=== PATIENT | female | born 1950 | race Two or more races ===

== ENCOUNTER 2019-10-19 14:37 | Emergency (ER) | payer OTHER, MEDICAID ==
[~2019-10-19] VITALS: Ht 160 cm; Wt 59.0 kg
[~2019-10-19 14:37] MED LIST: ASPI-1153 PO; ATEN100T PO; BENA40TA8 PO; CYTOMEL; DEXILANT; DILT120C21 PO; EZET1TAB35 PO; FLUO-119 PO; FURO-150 PO; HYDR-507 PO; IBUP-1970 PO; LEVO112T5 PO; LORA-259 PO; METF-379 PO; NITR50CA PO; POTA10TA15 PO; SERT50TA12 PO; TRAZ-250 PO
[2019-10-19 15:00] VITALS: BP_SYST 110
--- NOTE | 2019-10-19 15:00 | NUR ---
Patient to ER bed 2 to gown for evaluation. Side rails up.
[2019-10-19] MEDS ORDERED: NACL 0.9% 1,000 ML IV ONE ×2 (15:05→15:30)
--- NOTE | 2019-10-19 15:05 | NUR ---
ER at bedside examining patient.
--- NOTE | 2019-10-19 15:10 | NUR ---
Patient BIB ACLS C/O chest pain. Patient A&Ox3, skin pink and warm, pain 8/10, denies N/V/D. Patient states she is a resident of [facility], patient states she was upset with care & [employer] and began having Chest pain. ACLS was called
[2019-10-19] MEDS ORDERED: NITROGLYCERIN 0.4 MG TAB.SUBL SL ONE (15:15)
[2019-10-19] MEDS ORDERED: ASPIRIN 81 MG TAB.CHEW PO ONE (15:15)
--- NOTE | 2019-10-19 15:35 | NUR ---
EKG performed at BS by MOLLY TORRES. Physician given copy of EKG for review.
[2019-10-19 16:00] LABS: BASOPHILS % (AUTO) 0.7 % (0.0-2.0); EOSINOPHILS # (AUTO) 0.2 K/uL (0.0-0.4); EOSINOPHILS % (AUTO) 3.2 % (0.0-4.0); HEMATOCRIT 37.2 % (36-48); HEMOGLOBIN 12.2 g/dL (12.0-16.0); LYMPHOCYTES # (AUTO) 1.7 K/uL (1.0-5.5); LYMPHOCYTES % (AUTO) 23.4 % (20.5-51.5); MEAN CORPUSCULAR HEMOGLOBIN 27 pg (27-31); MEAN CORPUSCULAR HGB CONC 33 % (32-36); MEAN CORPUSCULAR VOLUME 84 fL (79.0-98.0); MONOCYTES # (AUTO) 0.6 K/uL (0.0-1.0); MONOCYTES % (AUTO) 7.5 % (1.7-9.3); NEUTROPHILS # (AUTO) 4.9 K/uL (1.8-7.7); NEUTROPHILS % (AUTO) 65.2 % (40.0-70.0); PLATELET COUNT (AUTO) 377 K/uL (130-430); RED BLOOD CELL COUNT(AUTO) 4.44 MIL/uL (4.2-6.2); RED CELL DISTRIBUTION WIDTH 15.5 % (9.0-15.0); WHITE BLOOD COUNT (AUTO) 7.4 K/uL (4.8-10.8)
[2019-10-19 16:19] LABS: BILIRUBIN,URINE NEGATIVE (NEGATIVE); BLOOD, URINE NEGATIVE (NEGATIVE); CLARITY/URINE CLEAR (CLEAR); COLOR,URINE YELLOW (YELLOW); GLUCOSE,URINE NEGATIVE (NEGATIVE); KETONES,URINE NEGATIVE (NEGATIVE); LEUKOCYTE ESTERASE ,URINE NEGATIVE (NEGATIVE); NITRITE, URINE NEGATIVE (NEGATIVE); PH,URINE 6.5 (5.0-8.0); PROTEIN URINE 1+ (NEGATIVE); UROBILINOGEN,URINE 0.2 (0.2-1.0)
[2019-10-19 16:22] LABS: CALCIUM 9.1 mg/dL (8.4-11.0); CREATININE 0.95 mg/dL (0.55-1.30); POTASSIUM 3.5 mmol/L (3.5-5.1)
[2019-10-19 16:28] LABS: ALBUMIN 3.7 g/dL (3.4-4.8); TOTAL BILIRUBIN 0.2 mg/dL (0.0-1.0)
[2019-10-19 17:35] VITALS: BP_SYST 106
--- NOTE | 2019-10-19 17:35 | NUR ---
Patient given written and verbal discharge instructions and verbalizes understanding. ER MD discussed with patient the results and treatment provided. Patient in stable condition. ID arm band removed. IV catheter removed intact and dressing applied, no active bleeding. NO Rx given. Patient educated on pain management and to follow up with PMD. Pain Scale 3/10 tolerable for patient. Opportunity for questions provided and answered. Medication side effect fact sheet provided.
--- NOTE | 2019-10-19 18:01 | NUR ---
Report given to Daja SALGADO at [facility]. Care at bedside for transport.
[2019-10-19] MEDS ORDERED: ACETAMINOPHEN 325 MG TABLET PO ONE (18:30)
[2019-10-20] MEDS ORDERED: NITROGLYCERIN 0.4 MG TAB.SUBL SL ONE (08:44)
== END 2019-10-19 17:35 | disposition home or self-care (01) ==
LOC: SED 14:37
DX: F41.9 Anxiety disorder, unspecified (principal); R07.89 Other chest pain; E11.9 Type 2 diabetes mellitus without complications; I10 Essential (primary) hypertension; I25.10 Atherosclerotic heart disease of native coronary artery without angina pectoris; Z79.84 Long term (current) use of oral hypoglycemic drugs; Z79.899 Other long term (current) drug therapy
CPT/HCPCS: 36415; 71045; 80053; 81003; 82150; 82550; 83605; 83690; 83880; 84484; 85025; 85610; 85730; 87040; 93005; 99284; J7030

== ENCOUNTER 2020-07-26 10:50 | Inpatient (IN) | payer OTHER, MEDICAID, SELFPAY ==
[~2020-07-26] VITALS: Ht 165.1 cm; Wt 94.3 kg
[~2020-07-26 10:50] MED LIST changes: -ASPI-1153 PO; +ASPI-1393 PO; -FLUO-119 PO; +FLUO20CA41 PO
[2020-07-26 10:56] VITALS: BP_SYST 138
--- NOTE | 2020-07-26 11:00 | NUR ---
Patient to ER bed 8 to gown for evaluation. Side rails up. Report given to MILA SALGADO.
--- NOTE | 2020-07-26 11:01 | NUR ---
Patient presented to ER C/O abdominal pain. Patient BIB BLS to ER, A&Ox4 ambulatory, afebrile, skin pink & warm, nausea, diarrhea, denies vomiting, abdominal distention, pain 10/10. Patient states she has adominal pain with diarrhea x8 today and blood in urine.
--- NOTE | 2020-07-26 12:40 | NUR ---
ER Dr. Cleveland at bedside examining patient.
[2020-07-26] MEDS ORDERED: MORPHINE 4 MG/ML INJ. SYRINGE IVP ONE (13:00)
[2020-07-26] MEDS ORDERED: ONDANSETRON HCL 4 MG/2 ML VIAL IVP ONE (13:00)
--- NOTE | 2020-07-26 13:00 | NUR ---
# 20 gauge angiocath placed to lac. Use of asceptic technique. Opsite placed over site. Blood return noted. Blood for lab drawn from site. Flushed with 10 cc of normal saline. No evidence of infiltration noted. Patient tolerated well.
[2020-07-26 13:18] LABS: BASOPHILS # (AUTO) 0.1 K/uL (0.0-0.2); BASOPHILS % (AUTO) 0.5 % (0.0-2.0); EOSINOPHILS # (AUTO) 0.2 K/uL (0.0-0.4); EOSINOPHILS % (AUTO) 1.4 % (0.0-4.0); HEMATOCRIT 37.6 % (36-48); HEMOGLOBIN 12.2 g/dL (12.0-16.0); LYMPHOCYTES # (AUTO) 2.2 K/uL (1.0-5.5); LYMPHOCYTES % (AUTO) 16.9 % (20.5-51.5); MEAN CORPUSCULAR HEMOGLOBIN 26 pg (27-31); MEAN CORPUSCULAR HGB CONC 32 % (32-36); MEAN CORPUSCULAR VOLUME 80 fL (79.0-98.0); MONOCYTES % (AUTO) 7.3 % (1.7-9.3); NEUTROPHILS # (AUTO) 9.8 K/uL (1.8-7.7); NEUTROPHILS % (AUTO) 73.9 % (40.0-70.0); PLATELET COUNT (AUTO) 364 K/uL (130-430); RED BLOOD CELL COUNT(AUTO) 4.71 MIL/uL (4.2-6.2); RED CELL DISTRIBUTION WIDTH 15.2 % (9.0-15.0); WHITE BLOOD COUNT (AUTO) 13.3 K/uL (4.8-10.8)
[2020-07-26 13:24] LABS: CALCIUM 9.6 mg/dL (8.4-11.0); CREATININE 0.85 mg/dL (0.55-1.30); POTASSIUM 3.6 mmol/L (3.5-5.1)
[2020-07-26 13:28] LABS: PROTHROMBIN TIME 10.7 SECS (9.5-12.5)
[2020-07-26 13:30] LABS: TOTAL BILIRUBIN 0.3 mg/dL (0.0-1.0)
[2020-07-26 13:50] LABS: BILIRUBIN,URINE NEGATIVE (NEGATIVE); BLOOD, URINE 3+ (NEGATIVE); GLUCOSE,URINE NEGATIVE (NEGATIVE); KETONES,URINE NEGATIVE (NEGATIVE); LEUKOCYTE ESTERASE ,URINE 3+ (NEGATIVE); NITRITE, URINE NEGATIVE (NEGATIVE); PH,URINE 7.5 (5.0-8.0); PROTEIN URINE 1+ (NEGATIVE); UROBILINOGEN,URINE 0.2 (0.2-1.0)
[2020-07-26 14:06] LABS: CLARITY/URINE CLOUDY (CLEAR); COLOR,URINE ORANGE (YELLOW)
[2020-07-26 14:07] LABS: BACTERIA,URINE FEW /HPF (None Seen); RBC,URINE >100 /HPF (0-3); WBC,URINE 50-80 /HPF (0-3)
[2020-07-26 14:08] LABS: MUCUS,URINE 1+ /LPF (None Seen)
[2020-07-26] MEDS ORDERED: NS 1000 ML IV.SOLN IV ONE (14:15)
[2020-07-26] MEDS ORDERED: cefTRIAXone 1 GM IVPB PREMIX 50 ML IV ONE (14:15)
--- NOTE | 2020-07-26 14:59 | NUR ---
Lab notified of to draw second lactic acid.
--- NOTE | 2020-07-26 15:18 | NUR ---
Daughter of PT given telephone update. Patient vebally consented giving information to Elizabet king.
[2020-07-26] MEDS ORDERED: NACL 0.9% 1,000 ML IV SCH (16:30)
--- NOTE | 2020-07-26 16:38 | NUR ---
Patient will be admitted to care of DR GIL. Admitted to MS unit. Will go to room 117A . Belongings list completed. Complete and up to date summary report printed. SBAR report to be given at bedside with opportunity for questions.
[2020-07-26] MEDS ORDERED: KETO60CR2 TP (16:40)
[2020-07-26] MEDS ORDERED: MAGN400T10 PO (16:40)
[2020-07-26] MEDS ORDERED: AMLO5TAB4 PO (16:40)
[2020-07-26] MEDS ORDERED: MONT10TA22 PO (16:40)
[2020-07-26] MEDS ORDERED: POLY15DR31 EACH EYE (16:40)
[2020-07-26] MEDS ORDERED: LOSA50TA3 PO (16:40)
[2020-07-26] MEDS ORDERED: LOP600 PO (16:40)
[2020-07-26] MEDS ORDERED: ROSU10TA2 PO (16:40)
[2020-07-26] MEDS ORDERED: ZOLP5TAB2 PO (16:40)
--- NOTE | 2020-07-26 17:00 | NUR ---
ADMISSION NOTE Received patient from ER via yancy, received report from Fabiana SALGADO. Patient admitted with diagnosis of UTI . Patient oriented to hospital routine, call light, toileting and safety-patient verbalized understanding.
[2020-07-26] MEDS ORDERED: LORazepam 2 MG/ML VIAL IVP PRN (17:15)
[2020-07-26] MEDS ORDERED: MAGNESIUM SULFATE 50 ML IV PRN (17:15)
[2020-07-26] MEDS ORDERED: DEXTROSE 50% JECT 50 ML DISP.SYRIN IVP PRN (17:15)
[2020-07-26] MEDS ORDERED: POTASSIUM CHLORIDE 20 MEQ TAB.PRT.SR PO PRN (17:15)
[2020-07-26] MEDS ORDERED: ACETAMINOPHEN 325 MG TABLET PO PRN (17:15)
[2020-07-26] MEDS ORDERED: NALOXONE HCL 0.4 MG/ML AMP (NARCAN) IVP PRN ×2 (17:15)
[2020-07-26] MEDS ORDERED: MUPIROCIN 2% TOPICAL OINTMENT 22 GM NS PRN (17:15)
--- NOTE | 2020-07-26 17:30 | NUR ---
nurse note obtained vs, assessed patient, abdomen firm, distended, tender. bed in low and locked position, call light within reach, bed alarm on
[2020-07-26] MEDS: NACL 0.9% 1,000 ML IV SCH (17:59)
--- NOTE | 2020-07-26 18:00 | NUR ---
nurse note hung IVF's iv flushed freely, no signs of infiltration, patient denies any pain or discomfort
--- NOTE | 2020-07-26 18:44 | NUR ---
medication clarification spoke with dr Chase, Norvasc should be every morning not 4 times a day
[2020-07-26 18:50] VITALS: BP_SYST 142
--- NOTE | 2020-07-26 19:10 | NUR ---
CLOSING NOTE PROVIDED BEDSIDE SBAR TO NIGHT RN, PATIENT IN BED, RESPIRATIONS EVEN, NON LABORED, BED IN LOW AND LOCKED POSITION, CALL LIGHT WITHIN REACH, BED ALARM ON, ENDORSED TRANSFER TO NIGHT RN Addendum: 07/26/20 at 1926 by Mercedes Quevedo RN DISREGARD TRANSFER ENDORSEMENT, ENTERED ON WRONG PATIENT
[2020-07-26] MEDS: cefTRIAXone 1 GM in D5W 50 ML IV SCH (19:26)
--- NOTE | 2020-07-26 19:39 | NUR ---
Initial note: Received report from dayshift RN. Patient is awake in bed watching TV. No acute distress. Even and unlabored breathing, tolerating room air. IV site patent and benign, receiving IV fluids per MD order. Call light is with patient. Safety, fall precautions in place. Will continue with plan of care.
[2020-07-26 20:00] VITALS: BP_SYST 135
[2020-07-26] MEDS: ATENOLOL 50 MG TABLET (TENORMIN) PO SCH (20:58)
[2020-07-26] MEDS: GEMFIBROZIL 600 MG TABLET (LOPID) PO SCH (20:58)
[2020-07-26] MEDS: DILTIAZEM HCL 120 MG CAP.SR.24H PO SCH (20:58)
[2020-07-26] MEDS: FLUoxetine HCL 20 MG CAPSULE (PROzac) PO SCH (20:58)
[2020-07-26] MEDS: MONTELUKAST 10 MG TABLET PO SCH (20:58)
[2020-07-26] MEDS ORDERED: HEPARIN SODIUM,PORCINE 5,000 UNITS/ML VIAL SUBCUT SCH (21:00)
[2020-07-26] MEDS ORDERED: amLODIPine BESYLATE 5 MG TABLET PO SCH (21:00)
[2020-07-26] MEDS: INSULIN LISPRO SLIDING SCALE 100 UNITS/ML VIAL (humaLOG) SUBCUT PRN (21:02)
--- NOTE | 2020-07-26 22:24 | NUR ---
Rounds: Patient is awake, does not show any acute distress. Respirations are even, unlabored on room air. IV fluids infusing per MD order, no infiltration noted. Patient ambulated to bathroom and back to bed with standby RN assist. Patient reported voiding clear, yellow urine. Call light is with patient. Will continue to monitor.
[2020-07-26] MEDS: LOSARTAN POTASSIUM 50 MG TABLET (COZAAR) PO SCH (22:35)
[2020-07-26] MEDS: traZODone HCL 50 MG TABLET (DESYREL) PO SCH (22:35)
[2020-07-26] MEDS: ZOLPIDEM TARTRATE 5 MG TABLET PO PRN (22:35)
--- NOTE | 2020-07-27 00:17 | NUR ---
Rounds: Patient is in bed sleeping. No s / s of acute distress. Tolerating room air. Even and unlabored breathing. IV site receiving IV fluids shows no infiltration. Patient ambulated to bathroom and back to bed with standby RN assist. Patient reported voiding clear, yellow urine. Call light is with patient. Will continue monitoring.
[2020-07-27 00:55] VITALS: BP_SYST 100
--- NOTE | 2020-07-27 02:43 | NUR ---
Family update: Update provided to patient's daughter Sanjana Lee (person to notify per face sheet). She requests to be notified regarding patient discharge.
--- NOTE | 2020-07-27 03:45 | NUR ---
Rounds: Patient is asleep. No acute distress. Respirations are even and unlabored on room air. IV fluids infusing well, no infiltration. Call light with patient. Will continue to monitor.
[2020-07-27] MEDS: NACL 0.9% 1,000 ML IV SCH ×3 (05:11→23:07)
--- NOTE | 2020-07-27 06:07 | NUR ---
Closing note: Patient is resting comfortably in bed. No acute distress. Even, unlabored breathing. Tolerating room air. IV fluids infusing well. IV site benign and intact. All needs met. Safety, fall precautions observed. Will endorse care to dayshift RN.
[2020-07-27 06:28] LABS: BASOPHILS % (AUTO) 0.4 % (0.0-2.0); EOSINOPHILS # (AUTO) 0.3 K/uL (0.0-0.4); HEMATOCRIT 32.7 % (36-48); HEMOGLOBIN 10.5 g/dL (12.0-16.0); LYMPHOCYTES # (AUTO) 1.7 K/uL (1.0-5.5); LYMPHOCYTES % (AUTO) 25.7 % (20.5-51.5); MEAN CORPUSCULAR HEMOGLOBIN 26 pg (27-31); MEAN CORPUSCULAR HGB CONC 32 % (32-36); MEAN CORPUSCULAR VOLUME 81 fL (79.0-98.0); MONOCYTES # (AUTO) 0.5 K/uL (0.0-1.0); MONOCYTES % (AUTO) 7.7 % (1.7-9.3); NEUTROPHILS % (AUTO) 62.2 % (40.0-70.0); PLATELET COUNT (AUTO) 292 K/uL (130-430); RED BLOOD CELL COUNT(AUTO) 4.01 MIL/uL (4.2-6.2); RED CELL DISTRIBUTION WIDTH 15.4 % (9.0-15.0); WHITE BLOOD COUNT (AUTO) 6.4 K/uL (4.8-10.8)
[2020-07-27] MEDS: LEVOTHYROXINE SODIUM 0.112 MG TABLET PO SCH (06:37)
[2020-07-27] MEDS: INSULIN LISPRO SLIDING SCALE 100 UNITS/ML VIAL (humaLOG) SUBCUT PRN ×3 (06:43→21:53)
[2020-07-27 07:20] LABS: CALCIUM 8.2 mg/dL (8.4-11.0); CREATININE 0.78 mg/dL (0.55-1.30); POTASSIUM 3.9 mmol/L (3.5-5.1)
[2020-07-27] MEDS: PEG 400/HYPROMELLOSE/GLYCERIN 15 ML DROPS OP SCH ×4 (08:15→21:39)
[2020-07-27] MEDS ORDERED: PEG 400/HYPROMELLOSE/GLYCERIN 15 ML DROPS OP SCH (08:15)
[2020-07-27] MEDS ORDERED: DIATR MEGLU/DIATRIZ SOD 30 ML SOLUTION PO ONE (08:47)
--- NOTE | 2020-07-27 08:47 | NUR ---
CONSULTATION PAGED/CALLED Reason for Consultation: SEV ANXIETY Person Who was Notified: EMERALD Consulting Physician: CLARK Ordering Physician: JEFFERY
--- NOTE | 2020-07-27 08:52 | NUR ---
Nutrition Update Ivan scale 16 noted. Pt admitted for UTI Diet: CCHO, Cardiac Diet BMI: 34.6 kg/m2 RD to follow per nutrition care standards
[2020-07-27] MEDS: DILTIAZEM HCL 120 MG CAP.SR.24H PO SCH ×2 (09:00→21:00)
[2020-07-27] MEDS: amLODIPine BESYLATE 5 MG TABLET PO SCH (09:00)
[2020-07-27] MEDS: SERTRALINE HCL 50 MG TABLET PO SCH (09:00)
[2020-07-27] MEDS: ASPIRIN 81 MG TABLET(ECOTRIN) PO SCH ×2 (09:00→09:14)
[2020-07-27] MEDS: FUROSEMIDE 20 MG TABLET PO SCH (09:00)
[2020-07-27] MEDS: FLUoxetine HCL 20 MG CAPSULE (PROzac) PO SCH ×2 (09:00→21:39)
[2020-07-27] MEDS: metFORMIN HCL 500 MG TABLET PO SCH (09:00)
[2020-07-27] MEDS: LOSARTAN POTASSIUM 50 MG TABLET (COZAAR) PO SCH ×2 (09:00→21:00)
[2020-07-27] MEDS: ATORVASTATIN 20 MG TABLET PO SCH (09:00)
[2020-07-27] MEDS ORDERED: ROSUVASTATIN CALCIUM 5 MG/TAB (CRESTOR) PO SCH (09:00)
[2020-07-27] MEDS: GEMFIBROZIL 600 MG TABLET (LOPID) PO SCH ×2 (09:00→21:57)
[2020-07-27] MEDS: ATENOLOL 50 MG TABLET (TENORMIN) PO SCH ×2 (09:00→21:00)
--- NOTE | 2020-07-27 09:07 | NUR ---
CONSULTATION PAGED/CALLED Reason for Consultation: HEMATURIA Person Who was Notified: EMERALD Consulting Physician: BRO CLEMONS Ordering Physician: JEFFERY
[2020-07-27] MEDS: MORPHINE 2 MG/ML INJ. SYRINGE IVP PRN (10:37)
--- NOTE | 2020-07-27 10:37 | NUR ---
NURSE NOTE PATIENT TAKEN TO CT SCAN, VIA WHEEL CHAIR
--- NOTE | 2020-07-27 11:30 | NUR ---
NURSE NOTE PATIENT RETURNED FROM CT SCAN, COMPLAINING OF NAUSEA, WILL PROVIDE MEDICATION
[2020-07-27] MEDS: ONDANSETRON HCL 4 MG/2 ML VIAL IVP PRN (11:49)
[2020-07-27 12:00] VITALS: BP_SYST 99
--- NOTE | 2020-07-27 13:30 | NUR ---
nurse note patient in bed, respirations even, non labored, bed in low and locked position, call light within reach,
--- NOTE | 2020-07-27 14:51 | NUR ---
Dietitian Recommendations *Recommend continue CCHO, Cardiac Diet *Recommend add Glucerna BID to provide additional 440 kcal, 20 g protein to promote PO intake. Please see Nutrition Assessment for details. NIKKO,RD
[2020-07-27 16:00] VITALS: BP_SYST 108
--- NOTE | 2020-07-27 16:37 | NUR ---
nurse note administered medications bed in low and locked position, call light within reach
--- NOTE | 2020-07-27 16:39 | NUR ---
nurse note patient complaining that it is too cold, will attempt to move patient to another room, very anxious, coughing, paged dr. Chase for breathing treatment order and cough mediation
[2020-07-27 16:56] VITALS: BP_SYST 99
[2020-07-27] MEDS: IPRATROPIUM/ALBUTEROL SULFATE 3 ML AMPUL.NEB (DUONEB) INH PRN (17:12)
[2020-07-27] MEDS: cefTRIAXone 1 GM in D5W 50 ML IV SCH (18:25)
--- NOTE | 2020-07-27 18:45 | NUR ---
nurse note patient in bed, respirations even, non labored bed in locked position call light within reach, bed alarm on
--- NOTE | 2020-07-27 19:20 | NUR ---
Closing Note Provided SBAR to night RN, patient in bed, respirations even, non labored, bed in low and locked position call light within reach, endorsed care to night RN
--- NOTE | 2020-07-27 19:30 | NUR ---
OPENING NOTES: Received report from dayshift nurse. Patient is A & O x4 ambulating in her room. She appears to be in stable condition. IV noted on LAC with dry and intact dressing. She has steady gait and is not having any complaints at this time. Ensured all safety precautions. Room is clean and free of clutter. Bed is locked and in the lowest position, call light within reach.
[2020-07-27 20:00] VITALS: BP_SYST 103
--- NOTE | 2020-07-27 21:30 | NUR ---
MEDICATION ADMINISTRATION: Patient is laying in bed with no s/s of distress or discomfort. Her BP is 118/78, BP meds were held at this time and patient was informed. All other medications were given as ordered, pt tolerated well. I educated patient about Lopid and it's benefits, she verbalized understanding. Will continue to monitor.
[2020-07-27] MEDS: traZODone HCL 50 MG TABLET (DESYREL) PO SCH (21:39)
[2020-07-27] MEDS: MONTELUKAST 10 MG TABLET PO SCH (21:40)
--- NOTE | 2020-07-27 23:15 | NUR ---
SLEEPING AID: Patient states she is unable to sleep and is requesting Ambien. I gave medication as ordered. I educated patient about the potential side effects of Ambien such as drowsiness and advised her to use caution when getting up and use call light for assistance to the bathroom if she feels dizzy. She verbalized understanding.
[2020-07-27] MEDS: ZOLPIDEM TARTRATE 5 MG TABLET PO PRN (23:16)
[2020-07-28] VITALS: BP_SYST 118
--- NOTE | 2020-07-28 01:00 | NUR ---
RN ROUNDS: Patient is laying in bed and appears to be asleep. The room is free of clutter and well lit. Will continue to monitor patient.
--- NOTE | 2020-07-28 02:00 | NUR ---
RN ROUNDS: Patient is laying in bed and appears to be asleep. She is not exhibiting any s/s of distress or discomfort. Will continue to monitor.
--- NOTE | 2020-07-28 04:46 | NUR ---
RN ROUNDS: Patient is laying in bed and appears to be asleep. She is not exhibiting any s/s of distress or discomfort. Bed is in the lowest position, call light within reach. Will continue to monitor.
[2020-07-28] MEDS: LEVOTHYROXINE SODIUM 0.112 MG TABLET PO SCH (06:15)
[2020-07-28] MEDS: INSULIN LISPRO SLIDING SCALE 100 UNITS/ML VIAL (humaLOG) SUBCUT PRN ×2 (06:20→16:22)
[2020-07-28 06:50] LABS: BASOPHILS % (AUTO) 0.6 % (0.0-2.0); EOSINOPHILS # (AUTO) 0.3 K/uL (0.0-0.4); EOSINOPHILS % (AUTO) 5.2 % (0.0-4.0); HEMATOCRIT 31.8 % (36-48); HEMOGLOBIN 10.2 g/dL (12.0-16.0); LYMPHOCYTES # (AUTO) 1.8 K/uL (1.0-5.5); LYMPHOCYTES % (AUTO) 30.5 % (20.5-51.5); MEAN CORPUSCULAR HEMOGLOBIN 26 pg (27-31); MEAN CORPUSCULAR HGB CONC 32 % (32-36); MEAN CORPUSCULAR VOLUME 81 fL (79.0-98.0); MONOCYTES # (AUTO) 0.5 K/uL (0.0-1.0); MONOCYTES % (AUTO) 7.9 % (1.7-9.3); NEUTROPHILS # (AUTO) 3.2 K/uL (1.8-7.7); NEUTROPHILS % (AUTO) 55.8 % (40.0-70.0); PLATELET COUNT (AUTO) 265 K/uL (130-430); RED BLOOD CELL COUNT(AUTO) 3.92 MIL/uL (4.2-6.2); RED CELL DISTRIBUTION WIDTH 15.6 % (9.0-15.0); WHITE BLOOD COUNT (AUTO) 5.8 K/uL (4.8-10.8)
[2020-07-28 07:02] LABS: CALCIUM 8.2 mg/dL (8.4-11.0); CREATININE 0.69 mg/dL (0.55-1.30); POTASSIUM 4.2 mmol/L (3.5-5.1)
--- NOTE | 2020-07-28 07:04 | NUR ---
CLOSING NOTES: Patient is A & O x4 and resting in bed. She is in stable condition. IV patent and intact on NS. All needs were met throughout shift. Ensured all safety precautions. Room is clean and free of clutter. Bed is locked and in the lowest position, call light within reach. Will endorse to dayshift nurse.
[2020-07-28 08:00] VITALS: BP_SYST 124
--- NOTE | 2020-07-28 08:00 | NUR ---
initial note rec patient awake alert with ivf infusing well on the l ac. no infiltration noted. noted with non productive cough. resp easy and unlabored. no sob noted. bed to the lowest positon and side rails up and locked. call light withn reached.
[2020-07-28] MEDS ORDERED: METOCLOPRAMIDE HCL 10 MG TABLET PO PRN (08:45)
--- NOTE | 2020-07-28 08:56 | NUR ---
CONSULTATION PAGED/CALLED Reason for Consultation: [] INT ABD PAIN Person Who was Notified: [] TACO Consulting Physician: [] DR JONES FISH BUTCHER FOR DR CHAIREZ Director Toxicology Specialty: [] GI Ordering Physician: [] DR GIL
[2020-07-28] MEDS: guaiFENesin/DEXTROMETHORPHAN 10 ML UDC PO PRN ×2 (09:06→23:29)
[2020-07-28] MEDS: ATORVASTATIN 20 MG TABLET PO SCH (09:07)
[2020-07-28] MEDS: FLUoxetine HCL 20 MG CAPSULE (PROzac) PO SCH (09:07)
[2020-07-28] MEDS: ASPIRIN 81 MG TABLET(ECOTRIN) PO SCH (09:08)
[2020-07-28] MEDS: amLODIPine BESYLATE 5 MG TABLET PO SCH (09:08)
[2020-07-28] MEDS: LOSARTAN POTASSIUM 50 MG TABLET (COZAAR) PO SCH ×2 (09:09→21:37)
[2020-07-28] MEDS: ATENOLOL 50 MG TABLET (TENORMIN) PO SCH ×2 (09:09→21:38)
[2020-07-28] MEDS: SERTRALINE HCL 50 MG TABLET PO SCH (09:10)
[2020-07-28] MEDS: DILTIAZEM HCL 120 MG CAP.SR.24H PO SCH ×2 (09:10→21:36)
[2020-07-28] MEDS: GEMFIBROZIL 600 MG TABLET (LOPID) PO SCH ×2 (09:10→21:39)
[2020-07-28] MEDS: metFORMIN HCL 500 MG TABLET PO SCH (09:11)
[2020-07-28] MEDS: DOCUSATE SODIUM 100 MG CAPSULE PO PRN (09:11)
[2020-07-28] MEDS: FUROSEMIDE 20 MG TABLET PO SCH (09:12)
[2020-07-28] MEDS: MORPHINE 2 MG/ML INJ. SYRINGE IVP PRN ×2 (09:13→21:52)
[2020-07-28] MEDS: ONDANSETRON HCL 4 MG/2 ML VIAL IVP PRN ×2 (09:25→21:50)
[2020-07-28] MEDS: NACL 0.9% 1,000 ML IV SCH ×2 (09:26→21:50)
--- NOTE | 2020-07-28 10:00 | NUR ---
rounds seen by dr carmichael and dr jiménez. no sob noted due meds were given and katrin well.
[2020-07-28] MEDS ORDERED: POLYETHYLENE GLYCOL 3350, 17 GM/ POWD.PACK PO ONE (10:15)
[2020-07-28] MEDS: PEG 400/HYPROMELLOSE/GLYCERIN 15 ML DROPS OP SCH ×3 (11:35→21:35)
--- NOTE | 2020-07-28 11:41 | NUR ---
rounds pt npo at this itme for ultrasound of the abdomen at 1500. no hypo hyperglycemic reaction noted.
[2020-07-28 11:53] VITALS: BP_SYST 112
--- NOTE | 2020-07-28 13:00 | NUR ---
rounds npo maintained for the ultrasound. no sob noted.
--- NOTE | 2020-07-28 15:30 | NUR ---
rounds ultrasound of the abdomen was completed and pt was fed. call light within reached.
[2020-07-28 16:00] VITALS: BP_SYST 107
--- NOTE | 2020-07-28 16:44 | NUR ---
rounds no hypo hyperglycemic reaction noted. due meds were given and katrin well. call light withn reached.
[2020-07-28] MEDS: cefTRIAXone 1 GM in D5W 50 ML IV SCH (19:17)
--- NOTE | 2020-07-28 19:25 | NUR ---
OPENING NOTES RECEIVED PATIENT IS RESTING, NO SIGNS OF ACUTE RESPIRATORY DISTRESS NOTED, IV SITE PATENT, DRESSINGS C/D/I, IVF RUNNING. CALL LIGHT WITHIN REACH, BED ALARM OFF, PATIENT REFUSES BED ALARM , PATIENT USES CALL LIGHT. BED AT LOWEST POSITION. WILL CONTINUE TO MONITOR.
[2020-07-28 20:00] VITALS: BP_SYST 124
[2020-07-28] MEDS: POLYETHYLENE GLYCOL 3350, 17 GM/ POWD.PACK PO SCH (21:00)
[2020-07-28] MEDS: traZODone HCL 50 MG TABLET (DESYREL) PO SCH (21:36)
[2020-07-28] MEDS: MONTELUKAST 10 MG TABLET PO SCH (21:38)
[2020-07-28] MEDS: ZOLPIDEM TARTRATE 5 MG TABLET PO PRN (22:38)
--- NOTE | 2020-07-29 00:06 | NUR ---
PATIENT RESTING, NO SIGNS OF ACUTE RESPIRATORY DISTRESS. SANDWICH PROVIDED. WILL CONTINUE TO MONITOR.
[2020-07-29 00:49] VITALS: BP_SYST 117
[2020-07-29] MEDS: IPRATROPIUM/ALBUTEROL SULFATE 3 ML AMPUL.NEB (DUONEB) INH PRN ×3 (05:34→19:37)
[2020-07-29] MEDS: LEVOTHYROXINE SODIUM 0.112 MG TABLET PO SCH (06:00)
[2020-07-29] MEDS: guaiFENesin/DEXTROMETHORPHAN 10 ML UDC PO PRN ×3 (06:00→17:53)
[2020-07-29] MEDS: INSULIN LISPRO SLIDING SCALE 100 UNITS/ML VIAL (humaLOG) SUBCUT PRN ×4 (06:09→20:55)
[2020-07-29 06:28] LABS: CALCIUM 8.5 mg/dL (8.4-11.0); CREATININE 0.79 mg/dL (0.55-1.30); POTASSIUM 4.3 mmol/L (3.5-5.1)
--- NOTE | 2020-07-29 06:31 | NUR ---
CLOSING NOTES PATIENT RESTING, NO SIGNS OF ACUTE RESPIRATORY DISTRESS NOTED, IV SITE PATENT, DRESSINGS C/D/I, IVF RUNNING. NO SIGNS OF PAIN AT THIS TIME, COUGH MEDICATION AND WARM WATER PROVIDED. CALL LIGHT WITHIN REACH, BED ALARM ON, BED AT LOWEST POSITION. ALL NEEDS MET THROUGHOUT SHIFT. WILL ENDORSE CARE TO ONCOMING SHIFT.
[2020-07-29 06:34] LABS: BASOPHILS % (AUTO) 0.5 % (0.0-2.0); EOSINOPHILS # (AUTO) 0.4 K/uL (0.0-0.4); EOSINOPHILS % (AUTO) 4.6 % (0.0-4.0); HEMATOCRIT 34.3 % (36-48); LYMPHOCYTES # (AUTO) 2.9 K/uL (1.0-5.5); LYMPHOCYTES % (AUTO) 33.4 % (20.5-51.5); MEAN CORPUSCULAR HEMOGLOBIN 26 pg (27-31); MEAN CORPUSCULAR HGB CONC 32 % (32-36); MEAN CORPUSCULAR VOLUME 82 fL (79.0-98.0); MONOCYTES # (AUTO) 0.7 K/uL (0.0-1.0); MONOCYTES % (AUTO) 8.6 % (1.7-9.3); NEUTROPHILS # (AUTO) 4.6 K/uL (1.8-7.7); NEUTROPHILS % (AUTO) 52.9 % (40.0-70.0); PLATELET COUNT (AUTO) 324 K/uL (130-430); RED BLOOD CELL COUNT(AUTO) 4.18 MIL/uL (4.2-6.2); RED CELL DISTRIBUTION WIDTH 15.3 % (9.0-15.0); WHITE BLOOD COUNT (AUTO) 8.6 K/uL (4.8-10.8)
[2020-07-29 08:00] VITALS: BP_SYST 93
--- NOTE | 2020-07-29 08:00 | NUR ---
initial notes rec patient awake alert and ambulating at bedside and to the br. resp easy and unlabored. no sob noted. bed to the lowest position and side rails up and locked. call light within reached and knows when to call for assistance. seen by dr reynoso at bedside.
[2020-07-29] MEDS ORDERED: SIMETHICONE 80 MG TAB.CHEW PO PRN (08:15)
[2020-07-29] MEDS: ATORVASTATIN 20 MG TABLET PO SCH (08:59)
[2020-07-29] MEDS: POLYETHYLENE GLYCOL 3350, 17 GM/ POWD.PACK PO SCH ×2 (08:59→21:03)
[2020-07-29] MEDS: ASPIRIN 81 MG TABLET(ECOTRIN) PO SCH (08:59)
[2020-07-29] MEDS: metFORMIN HCL 500 MG TABLET PO SCH (09:00)
[2020-07-29] MEDS: GEMFIBROZIL 600 MG TABLET (LOPID) PO SCH ×2 (09:00→20:32)
[2020-07-29] MEDS: SERTRALINE HCL 50 MG TABLET PO SCH (09:00)
[2020-07-29] MEDS: amLODIPine BESYLATE 5 MG TABLET PO SCH (09:00)
[2020-07-29] MEDS: DILTIAZEM HCL 120 MG CAP.SR.24H PO SCH ×2 (09:00→20:33)
[2020-07-29] MEDS: FUROSEMIDE 20 MG TABLET PO SCH (09:00)
[2020-07-29] MEDS: FLUoxetine HCL 20 MG CAPSULE (PROzac) PO SCH (09:00)
[2020-07-29] MEDS: LOSARTAN POTASSIUM 50 MG TABLET (COZAAR) PO SCH ×2 (09:00→20:35)
[2020-07-29] MEDS: DOCUSATE SODIUM 100 MG CAPSULE PO PRN (09:00)
[2020-07-29] MEDS: ATENOLOL 50 MG TABLET (TENORMIN) PO SCH ×2 (09:00→20:32)
[2020-07-29] MEDS: PEG 400/HYPROMELLOSE/GLYCERIN 15 ML DROPS OP SCH ×3 (09:01→20:36)
--- NOTE | 2020-07-29 10:00 | NUR ---
rounds due meds were given except for bp meds for being low. no sob noted. call light within reached. seen by dr carmichael.
[2020-07-29 12:15] VITALS: BP_SYST 104
--- NOTE | 2020-07-29 12:30 | NUR ---
rounds no hypo hyperglycemic reaction noted. noosb noted. call light within reached.
--- NOTE | 2020-07-29 14:00 | NUR ---
rounds denies pain. call light within reached.
[2020-07-29] MEDS: NACL 0.9% 1,000 ML IV SCH (15:46)
[2020-07-29 16:25] VITALS: BP_SYST 108
[2020-07-29] MEDS: MORPHINE 2 MG/ML INJ. SYRINGE IVP PRN (17:54)
[2020-07-29] MEDS: cefTRIAXone 1 GM in D5W 50 ML IV SCH (18:06)
--- NOTE | 2020-07-29 18:40 | NUR ---
closing notes no hypo hyperglycemic reaction noted. pain med given and katrin well. bed to the lowest position and side rails up and locked. call light within reached.
--- NOTE | 2020-07-29 19:35 | NUR ---
ROUNDS PATIENT IN BED, WATCHING TV, VITALS STABLE, NO PAIN AT THIS TIME. ASSESSMENT DONE AND DOCUMENTED. SEE FLOWSHEET. NEEDS ATTENDED TO. SAFETY MEASURES IN PLACED. BED IN LOW AND LOCKED POSITION. CALL LIGHT PLACED WITHIN REACH.
[2020-07-29 20:00] VITALS: BP_SYST 127
[2020-07-29] MEDS: MONTELUKAST 10 MG TABLET PO SCH (20:31)
[2020-07-29] MEDS: traZODone HCL 50 MG TABLET (DESYREL) PO SCH (20:33)
[2020-07-29] MEDS: ZOLPIDEM TARTRATE 5 MG TABLET PO PRN (21:03)
--- NOTE | 2020-07-29 21:14 | NUR ---
MEDICATION DUE MEDICATIONS GIVEN SCHEDULED, TOLERATED WELL. WILL CONTINUE TO MONITOR.
--- NOTE | 2020-07-30 00:12 | NUR ---
ROUNDS PATIENT ASLEEP, VITALS STABLE, NO SIGNS OF ANY PAIN AND DISCOMFORT NOTED. WILL CONTINUE TO MONITOR.
--- NOTE | 2020-07-30 02:16 | NUR ---
ROUNDS PATIENT ASLEEP, RESPIRATIONS EVEN AND UNLABORED, NO SOB NOTED. WILL CONTINUE TO MONITOR.
[2020-07-30] MEDS: NACL 0.9% 1,000 ML IV SCH (02:27)
[2020-07-30] MEDS: guaiFENesin/DEXTROMETHORPHAN 10 ML UDC PO PRN ×3 (02:27→13:44)
[2020-07-30] MEDS: IPRATROPIUM/ALBUTEROL SULFATE 3 ML AMPUL.NEB (DUONEB) INH PRN ×4 (02:29→15:13)
--- NOTE | 2020-07-30 04:17 | NUR ---
ROUNDS PATIENT SLEEPING, NO SOB NOR PAIN AND DISCOMFORT NOTED, RESPIRATIONS EVEN AND UNLABORED. WILL CONTINUE TO MONITOR.
[2020-07-30 06:22] LABS: CALCIUM 8.3 mg/dL (8.4-11.0); CREATININE 0.74 mg/dL (0.55-1.30); POTASSIUM 4.4 mmol/L (3.5-5.1)
[2020-07-30 06:36] LABS: BASOPHILS % (AUTO) 0.5 % (0.0-2.0); EOSINOPHILS # (AUTO) 0.4 K/uL (0.0-0.4); EOSINOPHILS % (AUTO) 5.6 % (0.0-4.0); HEMATOCRIT 30.8 % (36-48); HEMOGLOBIN 9.9 g/dL (12.0-16.0); LYMPHOCYTES # (AUTO) 1.8 K/uL (1.0-5.5); LYMPHOCYTES % (AUTO) 25.1 % (20.5-51.5); MEAN CORPUSCULAR HEMOGLOBIN 26 pg (27-31); MEAN CORPUSCULAR HGB CONC 32 % (32-36); MEAN CORPUSCULAR VOLUME 82 fL (79.0-98.0); MONOCYTES # (AUTO) 0.6 K/uL (0.0-1.0); MONOCYTES % (AUTO) 8.5 % (1.7-9.3); NEUTROPHILS # (AUTO) 4.4 K/uL (1.8-7.7); NEUTROPHILS % (AUTO) 60.3 % (40.0-70.0); PLATELET COUNT (AUTO) 269 K/uL (130-430); RED BLOOD CELL COUNT(AUTO) 3.76 MIL/uL (4.2-6.2); RED CELL DISTRIBUTION WIDTH 15.5 % (9.0-15.0); WHITE BLOOD COUNT (AUTO) 7.3 K/uL (4.8-10.8)
[2020-07-30] MEDS: LEVOTHYROXINE SODIUM 0.112 MG TABLET PO SCH (06:39)
[2020-07-30] MEDS: INSULIN LISPRO SLIDING SCALE 100 UNITS/ML VIAL (humaLOG) SUBCUT PRN ×2 (06:41→12:00)
--- NOTE | 2020-07-30 06:50 | NUR ---
CLOSING NOTES PATIENT RESTING IN BED, ALL NEEDS ATTENDED TO, NO COMPLAINTS AT THIS TIME. ALL NEEDS ATTENDED TO. CALL LIGHT PLACED WITHIN REACH.
[2020-07-30 08:00] VITALS: BP_SYST 131
--- NOTE | 2020-07-30 08:00 | NUR ---
A/Ox4,vss,ambulatory to bathroom,IVF continue infusing,needs attended,call light & persoanl items within pt reach safety maintained.continue to monitor pt.
[2020-07-30] MEDS ORDERED: CEPH-568 PO (08:23)
[2020-07-30] MEDS ORDERED: FLUO20CA41 PO (08:23)
[2020-07-30] MEDS: POLYETHYLENE GLYCOL 3350, 17 GM/ POWD.PACK PO SCH (09:00)
[2020-07-30] MEDS: FUROSEMIDE 20 MG TABLET PO SCH (09:18)
[2020-07-30] MEDS: FLUoxetine HCL 20 MG CAPSULE (PROzac) PO SCH (09:18)
[2020-07-30] MEDS: ATORVASTATIN 20 MG TABLET PO SCH (09:19)
[2020-07-30] MEDS: ASPIRIN 81 MG TABLET(ECOTRIN) PO SCH (09:19)
[2020-07-30] MEDS: metFORMIN HCL 500 MG TABLET PO SCH (09:20)
[2020-07-30] MEDS: SERTRALINE HCL 50 MG TABLET PO SCH (09:21)
[2020-07-30] MEDS: LOSARTAN POTASSIUM 50 MG TABLET (COZAAR) PO SCH (09:21)
[2020-07-30] MEDS: ATENOLOL 50 MG TABLET (TENORMIN) PO SCH (09:21)
[2020-07-30 09:33] VITALS: BP_SYST 130
[2020-07-30] MEDS: MORPHINE 2 MG/ML INJ. SYRINGE IVP PRN (09:34)
--- NOTE | 2020-07-30 10:00 | NUR ---
give am meds due,pt c/o pain in abd,give morphine 1 mg IV as prn order for pain, came and seen pt.order received to d/c pt.
[2020-07-30] MEDS: GEMFIBROZIL 600 MG TABLET (LOPID) PO SCH (10:06)
[2020-07-30] MEDS: ONDANSETRON HCL 4 MG/2 ML VIAL IVP PRN (10:06)
[2020-07-30] MEDS: PEG 400/HYPROMELLOSE/GLYCERIN 15 ML DROPS OP SCH (10:07)
[2020-07-30 11:26] VITALS: BP_SYST 120
[2020-07-30] MEDS: DILTIAZEM HCL 120 MG CAP.SR.24H PO SCH (11:58)
--- NOTE | 2020-07-30 12:00 | NUR ---
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 pt said she doesn't want her daughter come to pick her up because her daughter has 6 kids and she doens't want to bronchitis to them.
--- NOTE | 2020-07-30 14:00 | NUR ---
called caser up for transportation and pt has to pay for ambulance and pt refused to pay for ambulance for transporation,called [facility] they don't have river driver on weekend and unable to provide uber or transportation for pt.give IV antibiotic rocephin per pt requests to accomodate d/c.
[2020-07-30] MEDS: amLODIPine BESYLATE 5 MG TABLET PO SCH (14:25)
[2020-07-30] MEDS: cefTRIAXone 1 GM in D5W 50 ML IV SCH (14:28)
[2020-07-30 15:17] VITALS: BP_SYST 143
--- NOTE | 2020-07-30 16:00 | NUR ---
d/c IV,d/c instruction given and explained to pt.pt asking for another HHN tx and given per RT.condition stable awaiting uber arranged by her granddaughter jono.
== END 2020-07-30 17:00 | disposition home or self-care (01) | DRG 872 ==
LOC: SED 10:50 → SMU 16:21
PROVIDERS: ADMIT General Practice; ATTEND General Practice
DX: A41.89 Other specified sepsis (principal); N39.0 Urinary tract infection, site not specified; E87.2 Acidosis; F33.2 Major depressive disorder, recurrent severe without psychotic features; N12 Tubulo-interstitial nephritis, not specified as acute or chronic; E66.9 Obesity, unspecified; R31.29 Other microscopic hematuria; E78.5 Hyperlipidemia, unspecified; E89.0 Postprocedural hypothyroidism; F41.9 Anxiety disorder, unspecified; E11.9 Type 2 diabetes mellitus without complications; I11.0 Hypertensive heart disease with heart failure; Z20.828 Contact with and (suspected) exposure to other viral communicable diseases; K59.00 Constipation, unspecified; I48.91 Unspecified atrial fibrillation; I50.9 Heart failure, unspecified; Z96.653 Presence of artificial knee joint, bilateral; Z85.850 Personal history of malignant neoplasm of thyroid; Z85.820 Personal history of malignant melanoma of skin; Z79.899 Other long term (current) drug therapy; Z68.34 Body mass index [BMI] 34.0-34.9, adult
CPT/HCPCS: 36415; 74018; 76536-TC; 76700-TC; 80048; 80053; 81000-TC; 82962; 83036; 83605; 83690-TC; 83735-TC; 83880; 84484; 85025; 85610-TC; 85730-TC; 87040-TC; 87086; 93005; 94640; 94760; 96361; 96365; 96375; 99285; J0696; J1644; J2060; J2270; J2405; J7030; J7060; Q9964; Q9967

== ENCOUNTER 2022-10-27 12:58 | Emergency (ER) | payer OTHER, MEDICAID ==
[~2022-10-27] VITALS: Ht 165.1 cm; Wt 92.5 kg
[~2022-10-27 12:58] MED LIST changes: +AMLO5TAB4 PO; -BENA40TA8 PO; +CEPH-568 PO; -FLUO20CA41 PO; +FLUO20CA42 PO; +KETO60CR2 TP; +LOP600 PO; +LOSA50TA3 PO; +MAGN400T10 PO; +MONT10TA22 PO; +POLY15DR31 EACH EYE; +ROSU10TA2 PO; +SERT-436 PO; -SERT50TA12 PO; +ZOLP5TAB2 PO
[2022-10-27 13:00] VITALS: BP_SYST 154
--- NOTE | 2022-10-27 13:00 | NUR ---
BROUGHT IN BY [facility] AND TRIAGED. REPORT GIVEN TO TACO
--- NOTE | 2022-10-27 13:20 | NUR ---
pt biba with c/o abdominal discomfort / swelling. pt reports last bm this am. pt is awake, a/o x4 and verbally responsive. no acute distress noted. pt denies any abdominal pain. pt noted with round / distended abdomen, hard to touch. pt in gurney in position of comfort. safety measures in place.
--- NOTE | 2022-10-27 13:30 | NUR ---
ER at bedside examining patient.
[2022-10-27 13:37] LABS: BILIRUBIN,URINE NEGATIVE (NEGATIVE); BLOOD, URINE NEGATIVE (NEGATIVE); CLARITY/URINE CLEAR (CLEAR); COLOR,URINE YELLOW (YELLOW); GLUCOSE,URINE NEGATIVE (NEGATIVE); KETONES,URINE NEGATIVE (NEGATIVE); LEUKOCYTE ESTERASE ,URINE NEGATIVE (NEGATIVE); NITRITE, URINE NEGATIVE (NEGATIVE); PH,URINE 6.5 (5.0-8.0); PROTEIN URINE NEGATIVE (NEGATIVE); UROBILINOGEN,URINE 0.2 (0.2-1.0)
--- NOTE | 2022-10-27 13:55 | NUR ---
pt to ct via w/c
[2022-10-27 14:10] LABS: BASOPHILS % (AUTO) 0.5 % (0.0-2.0); EOSINOPHILS # (AUTO) 0.4 K/uL (0.0-0.4); EOSINOPHILS % (AUTO) 6.1 % (0.0-4.0); HEMATOCRIT 37.9 % (36-48); HEMOGLOBIN 12.6 g/dL (12.0-16.0); LYMPHOCYTES # (AUTO) 2.2 K/uL (1.0-5.5); LYMPHOCYTES % (AUTO) 35.7 % (20.5-51.5); MEAN CORPUSCULAR HEMOGLOBIN 30 pg (27-31); MEAN CORPUSCULAR HGB CONC 33 % (32-36); MEAN CORPUSCULAR VOLUME 90 fL (79.0-98.0); MONOCYTES # (AUTO) 0.5 K/uL (0.0-1.0); MONOCYTES % (AUTO) 7.3 % (1.7-9.3); NEUTROPHILS # (AUTO) 3.2 K/uL (1.8-7.7); NEUTROPHILS % (AUTO) 50.4 % (40.0-70.0); PLATELET COUNT (AUTO) 242 K/uL (130-430); RED CELL DISTRIBUTION WIDTH 13.5 % (9.0-15.0); WHITE BLOOD COUNT (AUTO) 6.3 K/uL (4.8-10.8)
[2022-10-27 14:15] LABS: ANION GAP 10 (5-15); CALCIUM 9.6 mg/dL (8.4-11.0); CHLORIDE 103 mmol/L (98-107); CREATININE 0.73 mg/dL (0.55-1.30); GLUCOSE 212 mg/dL (70-99); UREA NITROGEN, BLOOD 16 mg/dL (8-21)
[2022-10-27 14:20] LABS: ALANINE AMINOTRANSFERASE 29 U/L (12-78); ALBUMIN 3.6 g/dL (3.4-4.8); ASPARTATE AMINOTRANSFERASE 23 U/L (10-37); TOTAL BILIRUBIN 0.3 mg/dL (0.0-1.0)
[2022-10-27 15:32] VITALS: BP_SYST 146
--- NOTE | 2022-10-27 15:50 | NUR ---
reviewed discharge instructions with pt, pt verbalized understanding and denied any questions
--- NOTE | 2022-10-27 16:11 | NUR ---
alecia called for pt
--- NOTE | 2022-10-27 16:17 | NUR ---
escorted pt to [facility]. pt ambulated with steady gait and got into car with no acute distress. breathing even and unlabored. all belongings with pt
== END 2022-10-27 16:17 | disposition home or self-care (01) ==
LOC: SED 12:58
DX: R16.0 Hepatomegaly, not elsewhere classified (principal); K76.0 Fatty (change of) liver, not elsewhere classified; E11.9 Type 2 diabetes mellitus without complications; I10 Essential (primary) hypertension; Z79.899 Other long term (current) drug therapy
CPT/HCPCS: 36415; 76376; 80053; 81003; 83605; 85025; 87040; 99284